=== PATIENT | male | born 1970 | race Asian ===

== ENCOUNTER 2023-04-21 17:01 | Emergency (ER) | payer OTHER ==
[~2023-04-21] VITALS: Ht 165.1 cm; Wt 63.5 kg
[2023-04-21] MEDS ORDERED: NORFLEX100MG PO (20:15)
[2023-04-21] MEDS ORDERED: DICLOFENAC POTA50 MG PO (20:15)
== END 2023-04-21 20:19 | disposition home or self-care (01) ==
LOC: ER 17:01
DX: M62.838 Other muscle spasm (principal)